=== PATIENT | male | born 1975 | race Two or more races ===

== ENCOUNTER 2025-06-27 08:45 | Inpatient (IN) | payer OTHER ==
[~2025-06-27] VITALS: Ht 188 cm; Wt 85.3 kg
[2025-07-05] MEDS ORDERED: CEFTRIAXONE SODIUM 2,000 MG VIAL ONE (06:26)
[2025-07-05] MEDS ORDERED: METRONIDAZOLE/SODIUM CHLORIDE 500 MG/100 ML PIGGYBACK IV ONE ×2 (06:27→13:15)
[2025-07-05] MEDS ORDERED: LIDOCAINE HCL 1%/EPINEPHRINE 20ML VIAL IJ ONE (07:58)
[2025-07-05] MEDS ORDERED: BUPIVACAINE HCL/MPF 0.5% 30ML VIAL ONE (07:58)
[2025-07-05] MEDS ORDERED: SUGAMMADEX SODIUM 200 MG/2 ML VIAL IV ONE (10:00)
[2025-07-05] MEDS ORDERED: CIPROFLOXACIN IN 5 % DEXTROSE 400 MG/200 ML PIGGYBAG IV SCH (10:32)
[2025-07-05] MEDS ORDERED: LACTOBACILLUS ACIDOPHILUS 1 CAP CAP PO SCH (10:33)
[2025-07-05] MEDS ORDERED: TAMSULOSIN HCL 0.4 MG CAP PO SCH (10:33)
[2025-07-05] MEDS ORDERED: ONDANSETRON HCL 2 MG/ML VIAL IV PRN (10:45)
[2025-07-05] MEDS ORDERED: RINGERS SOLUTION,LACTATED 1,000 ML IV SCH (10:45)
[2025-07-05] MEDS ORDERED: OxyCODONE HCL 5 MG TABLET (ROXICODONE) PO PRN (10:45)
[2025-07-05] MEDS ORDERED: MORPHINE SULFATE 4 MG/ML CARTRIDGE IV PRN (10:45)
[2025-07-05] MEDS ORDERED: ACETAMINOPHEN 500 MG GEL..CAP PO SCH (12:00)
[2025-07-05] MEDS ORDERED: CIPROFLOXACIN IN 5 % DEXTROSE 400 MG/200 ML PIGGYBAG IV ONE ×2 (12:46→13:22)
[2025-07-05] MEDS ORDERED: HYOSCYAMINE SULFATE 0.125 MG TAB.SUBL SL SCH (13:00)
[2025-07-05] MEDS ORDERED: METRONIDAZOLE/SODIUM CHLORIDE 500 MG/100 ML PIGGYBACK IV SCH (13:00)
[2025-07-05 16:00] VITALS: BP 128/74; O2SAT 95
[2025-07-05] MEDS ORDERED: GABAPENTIN 300 MG CAPSULE PO SCH (17:00)
[2025-07-05] MEDS ORDERED: FAMOTIDINE/PF 20 MG/2 ML VIAL IV PUSH SCH (21:00)
[2025-07-06 00:30] VITALS: BP 132/77; O2SAT 98
[2025-07-06 07:48] LABS: BASO % 0.3 % (0.1-1.2); EOS # 0.08 (0.04-0.54); EOS % 0.9 % (0.7-7.0); LYMPH # 1.58 (1.18-3.74); LYMPH % 17.7 % (19.3-53.1); MEAN PLATELET VOLUME 10.40 fl (9.4-12.4); MONO # 0.83 (0.24-0.82); MONO % 9.3 % (4.7-12.5); NEUT # 6.37 (1.56-6.13); NEUT % 71.6 % (34.0-71.1); RED CELL DISTRIBUTION WIDTH 14.7 % (11.6-14.4)
[2025-07-06 08:11] VITALS: BP 134/79; O2SAT 97
[2025-07-06 08:15] LABS: BUN CREA RATIO 10.0 (7.0-25.0); CREATININE SERUM 0.88 mg/dL (0.70-1.30); GFR 92.43; GLUCOSE FASTING 107.0 mg/dL (65-100); OSMOLALITY SERUM 279.0 MOSM/KG (275-295)
[2025-07-06 16:00] VITALS: BP 131/79; O2SAT 96
[2025-07-06] MEDS ORDERED: MAGNESIUM SULFATE IN WATER 4 GM/100 ML PIGGYBACK IV NR (16:00)
[2025-07-06] MEDS ORDERED: ENOXAPARIN SODIUM 40 MG/0.4 ML SYRINGE SUBCUTANEO SCH (17:00)
[2025-07-07 01:14] VITALS: BP 121/78; O2SAT 97
[2025-07-07 08:24] VITALS: BP 127/73; O2SAT 95
[2025-07-07] MEDS ORDERED: ENOXAPARIN SODIUM 40 MG/0.4 ML SYRINGE SUBCUTANEO SCH (09:00)
[2025-07-07 16:00] VITALS: BP 131/72; O2SAT 98
[2025-07-08 00:23] VITALS: BP 127/75; O2SAT 98
[2025-07-08] MEDS ORDERED: PAIN RELIEVER500 M2 PO (07:37)
[2025-07-08] MEDS ORDERED: HYOSCYAMINE0.125 M1 SL (07:37)
[2025-07-08] MEDS ORDERED: GABAPENTIN300 MG PO (07:37)
[2025-07-08 08:00] VITALS: BP 124/76; O2SAT 95
== END 2025-07-08 13:56 | disposition home or self-care (01) | DRG 330 ==
LOC: O/R 07-05 06:00 → SURH 07-05 08:45
PROVIDERS: ADMIT Surgery; ATTEND Surgery
PROC: 0DBP4ZZ Excision of Rectum, Percutaneous Endoscopic Approach (ICD-10-PCS; 2025-07-05)
PROC: 07BC4ZZ Excision of Pelvis Lymphatic, Percutaneous Endoscopic Approach (ICD-10-PCS; 2025-07-05)
PROC: 0DNW4ZZ Release Peritoneum, Percutaneous Endoscopic Approach (ICD-10-PCS; 2025-07-05)
PROC: 8E0W4CZ Robotic Assisted Procedure of Trunk Region, Percutaneous Endoscopic Approach (ICD-10-PCS; 2025-07-05)
PROC: 0DTN4ZZ Resection of Sigmoid Colon, Percutaneous Endoscopic Approach (ICD-10-PCS; principal; 2025-07-05 11:15)
DX: C18.7 Malignant neoplasm of sigmoid colon (principal); K62.5 Hemorrhage of anus and rectum; K52.9 Noninfective gastroenteritis and colitis, unspecified